=== PATIENT | female | born 1990 | race Caucasian/White ===

== ENCOUNTER → 2020-04-21 | Outpatient (CLI) | payer MEDICAID, SELFPAY ==
[2015-01-09 17:19] VITALS: BMI 42.5
== END | disposition home or self-care (01) ==
LOC: LABSPEC 15:05
PROVIDERS: Referring Provider Family Medicine; Visit Provider Family Medicine
DX: Z11.59 Encounter for screening for other viral diseases (principal)
CPT/HCPCS: 87635; U0003

== ENCOUNTER → 2020-05-05 | Outpatient (CLI) | payer MEDICAID, SELFPAY ==
[2015-01-09 17:19] VITALS: BMI 42.5
== END | disposition home or self-care (01) ==
LOC: LABSPEC 13:11
PROVIDERS: Referring Provider Family Medicine; Visit Provider Family Medicine
DX: Z11.59 Encounter for screening for other viral diseases (principal)
CPT/HCPCS: 87635; U0003

== ENCOUNTER → 2020-05-19 | Outpatient (CLI) | payer MEDICAID, SELFPAY ==
[2015-01-09 17:19] VITALS: BMI 42.5
== END | disposition home or self-care (01) ==
LOC: LABSPEC 09:52
PROVIDERS: Referring Provider Family Medicine; Visit Provider Family Medicine
DX: Z11.59 Encounter for screening for other viral diseases (principal)
CPT/HCPCS: 87635; U0003

== ENCOUNTER → 2020-06-02 | Outpatient (CLI) | payer MEDICAID, SELFPAY ==
[2015-01-09 17:19] VITALS: BMI 42.5
== END | disposition home or self-care (01) ==
LOC: LABSPEC 09:43
PROVIDERS: Referring Provider Family Medicine; Visit Provider Family Medicine
DX: Z03.818 Encounter for observation for suspected exposure to other biological agents ruled out (principal)
CPT/HCPCS: 87635; U0003

== ENCOUNTER → 2020-06-13 | Outpatient (CLI) | payer MEDICAID, SELFPAY ==
[2015-01-09 17:19] VITALS: BMI 42.5
== END | disposition home or self-care (01) ==
LOC: LABSPEC 13:30
PROVIDERS: Visit Provider Family Medicine
DX: Z11.59 Encounter for screening for other viral diseases (principal)
CPT/HCPCS: 87635; U0003

== ENCOUNTER → 2020-06-16 | Outpatient (CLI) | payer MEDICAID, SELFPAY | END | disposition home or self-care (01) | LOC: LABSPEC 13:40 | PROVIDERS: Referring Provider Family Medicine; Visit Provider Family Medicine | DX: Z03.818 Encounter for observation for suspected exposure to other biological agents ruled out (principal) | CPT/HCPCS: 87635; U0003 ==